=== PATIENT | female | born 1960 | race Caucasian/White ===

== ENCOUNTER 2024-05-10 08:11 | Outpatient (CLI) | payer MEDICARE ==
[2024-05-10] MEDS ORDERED: Iopamidol 370 76% 100 ML VIAL ONE (10:22)
== END 2024-05-10 08:12 | disposition home or self-care (01) ==
LOC: CSHCT 08:11
PROVIDERS: ATTEND Surgery
DX: R10.13 Epigastric pain (principal); R19.06 Epigastric swelling, mass or lump; D17.1 Benign lipomatous neoplasm of skin and subcutaneous tissue of trunk; K80.20 Calculus of gallbladder without cholecystitis without obstruction
CPT/HCPCS: 36415; 74177; 82565; Q9967

== ENCOUNTER 2024-07-03 08:46 | Outpatient (CLI) | payer MEDICARE | END 2024-07-03 08:47 | disposition home or self-care (01) | LOC: CSHMAMMO 08:46 | PROVIDERS: ATTEND Physician Assistant | DX: Z12.31 Encounter for screening mammogram for malignant neoplasm of breast (principal) | CPT/HCPCS: 77063; 77067 ==

== ENCOUNTER 2024-08-23 08:55 | Outpatient (CLI) | payer MEDICARE | END 2024-08-23 08:56 | disposition home or self-care (01) | LOC: CSHSLEEP 08:55 | PROVIDERS: ATTEND Physician Assistant | DX: G47.33 Obstructive sleep apnea (adult) (pediatric) (principal); R53.83 Other fatigue; R09.89 Other specified symptoms and signs involving the circulatory and respiratory systems; G25.89 Other specified extrapyramidal and movement disorders; F32.A Depression, unspecified; F41.9 Anxiety disorder, unspecified; K21.9 Gastro-esophageal reflux disease without esophagitis; E66.9 Obesity, unspecified; Z68.31 Body mass index [BMI] 31.0-31.9, adult; R06.83 Snoring; I25.10 Atherosclerotic heart disease of native coronary artery without angina pectoris; I11.9 Hypertensive heart disease without heart failure | CPT/HCPCS: 95811 ==